=== PATIENT | male | born 1970 | race American Indian/Alaskan Native ===

== ENCOUNTER 2017-04-29 22:05 | Emergency (ER) | payer MEDICARE, MEDICAID ==
[2017-04-29 22:06] VITALS: BMI 35.4
[2017-04-29 22:17] VITALS: TEMP 97.8
--- NOTE | 2017-04-29 22:18 | ED PDOC ---
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 Patient notes that he was bleeding from left nostril and had 4 episodes of nosebleed prior to arrival. Patient's measured his blood pressure which was 137/100. Patient is on Aspirin. Time/Duration: 4-6 hours Symptom Course: Intermittent Severity Level: Mild Activities at Onset: Light Context: Home Past Medical History - Provider Review Nursing Documentation Reviewed: Yes - Psychiatric Hx Depression: No Hx Emotional Abuse: No Hx Physical Abuse: No Hx Substance Use: No - Suicidal Assessment Feels Threatened In Home Enviroment: No Family/Social History - Physician Review Nursing Documentation Reviewed: Yes Family/Social History: No Known Family HX Hx Alcohol Use: No Hx Substance Use: No Hx Substance Use Treatment: No Allergies/Home Meds Allergies/Adverse Reactions: Allergies No Known Allergies Allergy (Verified 04/29/17 22:17) Home Medications: Home Meds Medication Instructions Recorded Confirmed Atorvastatin [Lipitor] 1 tab PO HS 04/29/17 04/29/17 Ergocalciferol (Vitamin D2) 1 cap PO QWK 04/29/17 04/29/17 [Vitamin D2] Furosemide [Lasix] 1 tab PO DAILY 04/29/17 04/29/17 Losartan [Cozaar] 1 tab PO DAILY 04/29/17 04/29/17 Metoprolol Tartrate [Lopressor] 1 tab PO TID 04/29/17 04/29/17 amLODIPine [Norvasc] 1 tab PO DAILY 04/29/17 04/29/17 Review of Systems - Physician Review All systems were reviewed & negative as marked: Yes - Review of Systems Constitutional: Normal. absent: Fatigue, Fevers ENT: Epistaxis (left nostril ) Respiratory: Normal. absent: SOB, Cough, Sputum Cardiovascular: Normal. absent: Chest Pain, Palpitations Gastrointestinal: Normal. absent: Abdominal Pain, Constipation, Diarrhea, Nausea, Vomiting Musculoskeletal: Normal Neurological: Normal. absent: Headache, Dizziness, Focal Weakness Psychiatric: Normal Physical Exam Vital Signs Reviewed: Yes Vital Signs Temp Pulse Resp BP Pulse Ox 04/29/17 23:50 77 16 132/75 98 04/29/17 22:13 82 24 127/81 97 04/29/17 22:09 97.8 F 98 Temperature: Afebrile Blood Pressure: Normal Pulse: Regular Respiratory Rate: Normal Appearance: Positive for: Well-Appearing, Non-Toxic, Comfortable Pain Distress: None Mental Status: Positive for: Alert and Oriented X 3 - Systems Exam Head: Present: Atraumatic, Normocephalic Pupils: Present: PERRL Conjunctiva: Present: Normal Mouth: Present: Moist Mucous Membranes Nose (Internal): Present: No Active Bleeding (dried blood in left nares ) Neck: Present: Normal Range of Motion Respiratory/Chest: Present: Clear to Auscultation, Good Air Exchange. No: Respiratory Distress, Accessory Muscle Use Cardiovascular: Present: Regular Rate and Rhythm, Normal S1, S2. No: Murmurs Abdomen: Present: Normal Bowel Sounds. No: Tenderness, Distention, Peritoneal Signs Neurological: Present: GCS=15, CN II-XII Intact, Speech Normal Skin: Present: Warm, Dry, Normal Color. No: Rashes Psychiatric: Present: Alert, Oriented x 3, Normal Insight, Normal Concentration Medical Decision Making ED Course and Treatment: cotton ball soaked in phenylephrine and lidocaine placed in the left nare 04/29/17 23:27 cotton removed- dried blood all cleared, no active bleeding, no source of bleeding identified. disc w pt plan for follow up and rtr all questions and concerns addressed at this time - Medication Orders Current Medication Orders: Discontinued Medications Lidocaine HCl (Lidocaine 2% 20ml Vial) 0 ml IJ ONCE STA Stop: 04/29/17 22:28 Last Admin: 04/29/17 22:40 Dose: 20 ml Comments: Given by Phenylephrine HCl (Daryl-Synephrine 0.5% Nasal [place]) 0 ml NS STAT STA Stop: 04/29/17 22:18 Last Admin: 04/29/17 22:41 Dose: 2 sprays Comments: Given by MD Attila Rose Statement The provider has reviewed the documentation as recorded by the Shreeibadryan Stevens Provider Attestation: Provider Scribe Attestation: All medical record entries made by the Shreeibadryan were at my direction and personally dictated by me. I have reviewed the chart and agree that the record accurately reflects my personal performance of the history, physical exam, medical decision making, and the department course for this patient. I have also personally directed, reviewed, and agree with the discharge instructions and disposition. Disposition/Present on Arrival - Present on Arrival Any Indicators Present on Arrival: No - Disposition Have Diagnosis and Disposition been Completed?: Yes Diagnosis: Epistaxis Disposition: HOME/ ROUTINE Disposition Time: 23:31 Condition: GOOD Discharge Instructions (ExitCare): Nosebleed (ED) Additional Instructions: Please follow up with your doctor and also with the ENT specialist. Return to the ER for any worsening symptoms or for any other concerns. Referrals: Cinthya Loomis MD [Primary Care Provider] - Follow up with primary Yemi Alfredo DO [Doctor Oste[facility]] - Follow up with primary
[2017-04-29] MEDS: Phenylephrine 0.5% Nasal Spray (15 ml) NS STA ×2 (22:36→22:41)
[2017-04-29] MEDS: Lidocaine 2% Inj (20ml) IJ STA ×2 (22:37→22:40)
[2017-04-29 23:52] VITALS: BP 132/75; PULSE 77; RESP 16; O2SAT 98
== END 2017-04-29 23:52 | disposition home or self-care (01) ==
LOC: ED 22:05
DX: R04.0 Epistaxis (principal)